=== PATIENT | female | born 1970 | race Hispanic/Latino ===

== ENCOUNTER 2021-06-06 13:09 | Emergency (ER) | payer SELFPAY ==
[~2021-06-06] VITALS: Ht 157.5 cm; Wt 76.2 kg
[2021-06-06] MEDS ORDERED: MECLIZINE HCL 12.5 MG TAB PO ONE (14:45)
[2021-06-06] MEDS ORDERED: ONDANSETRON HCL 4 MG ORAL DISINTEGRATING TAB PO ONE (14:45)
[2021-06-06] MEDS ORDERED: MECLIZINE HCL 12.5 MG TAB ONE (14:45)
[2021-06-06] MEDS ORDERED: MECLIZINE HCL12.5 MG PO (16:49)
[2021-06-06] MEDS ORDERED: ONDANSETRON ODT4 MG PO (16:50)
[2021-06-06] MEDS ORDERED: MECLIZINE HCL25 MG PO (17:00)
[2021-06-06 17:35] VITALS: BP 129/85
== END 2021-06-06 15:00 | disposition home or self-care (01) ==
LOC: FSED 13:31
DX: R06.02 Shortness of breath (principal); R42 Dizziness and giddiness; F41.9 Anxiety disorder, unspecified; J45.909 Unspecified asthma, uncomplicated; R94.31 Abnormal electrocardiogram [ECG] [EKG]
CPT/HCPCS: 71046; 80053; 82553; 84484; 85025; 85379; 93005; 99283; J8597; Q0162